=== PATIENT | female | born 1985 | race Two or more races ===

== ENCOUNTER 2024-07-23 18:49 | Emergency (ER) | payer MEDICAID, SELFPAY ==
[2024-07-23 19:16] VITALS: BP 106/68; PULSE 75; RESP 18; TEMP 37.1; O2SAT 97; BMI 21.6
--- NOTE | 2024-07-23 19:40 | XR_ITS ---
Examination: Complete OB ultrasound, less than 14 weeks, transabdominal Date and time of exam: July 23, 2024 2035 hrs. Indications: Weakness beginning one month ago Technique: Obstetrical ultrasound images less than 14 weeks performed via transabdominal imaging Findings: A normal shaped single intrauterine gestation is present in the uterus. pole 3.80 cm corresponds to 10 weeks 5 days gestational age Cardiac motion 160 BPM Ultrasonographic survey of visible and placental structures unremarkable. Amniotic fluid volume appears appropriate for this estimated gestational age. Right ovary 4.3 x 3.1 x 3.2 cm arterial flow Left ovary 4.5 x 2.7 x 2.9 cm arterial flow Impression: Viable intrauterine gestation 10 weeks 5 days.
[2024-07-23 19:51] LABS: Collection Type, Urine Clean Catch
[2024-07-23 19:56] LABS: Basophils # (Auto) 0.1 Thou/mm3 (0.0-0.2); Basophils % (Auto) 0 % (0-2.5); Eosinophils # (Auto) 0.1 Thou/mm3 (0.0-0.5); Eosinophils % (Auto) 1 % (0-10); Hematocrit 34.2 % (36.0-46.0); Hemoglobin 11.6 g/dL (12.0-16.0); Immature Granulocytes % (Auto) 0 % (0-0); Immature Granulocytes Auto 0.04 Thou/mm3 (0.00-0.00); Lymphocytes # (Auto) 2.2 Thou/mm3 (1.0-4.8); Lymphocytes % (Auto) 18 % (10-50); Mean Corpuscular HGB Conc 33.9 g/dl (31.0-37.0); Mean Corpuscular Volume 88 fL (80-100); Monocytes # (Auto) 0.7 Thou/mm3 (0.0-0.8); Monocytes % (Auto) 5 % (0-12); Neutrophils # (Auto) 9.4 Thou/mm3 (1.8-7.7); Neutrophils % (Auto) 76 % (37-80); Nucleated Red Blood Cell % 0 /100 WBC (0); Platelet Count 273 Thou/mm3 (140-440); RDW Standard Deviation 45.1 fL (36.4-46.3); Red Blood Count 3.87 Miln/mm3 (4.00-5.20); White Blood Count 12.4 Thou/mm3 (3.6-11.0)
[2024-07-23 20:05] LABS: Amphetamine/Methamp Scrn,U Negative (Negative); Barbiturate Screen,Urine Negative (Negative); Benzodiazepines Screen,Urine Negative (Negative); Benzoylecgonine Screen, Ur Negative (Negative); Fentanyl Screen,Urine Negative (Negative); Opiate Screen,Urine Negative (Negative); THC Screen,Urine Negative (Negative)
[2024-07-23 20:08] LABS: Beta Hydroxybutyrate 0.2 mmol/L (<0.6)
[2024-07-23 20:10] LABS: Bacteria,Urine Rare; Bilirubin,Urine Negative (Negative); Blood,Urine Negative (Negative); Clarity,Urine Clear (Clear/Hazy); Color,Urine Colorless (Lt Yel-Yel); Culture Indicated,Urine Not Indicated; Glucose, Urine Negative (Negative); Ketones,Urine Negative (Negative); Leukocyte Esterase,Urine Negative (Negative); Nitrite,Urine Negative (Negative); PH,Urine 6.5 (5.0-7.0); Protein,Urine Negative (Neg - Trace); RBC,Urine 1 /hpf (0-3); Specific Gravity,Urine 1.003 (1.001-1.035); Squamous Epithelial Cell,Urine 4 /hpf (0-5); Urobilinogen,Urine Negative mg/dL (0.0-1.0); WBC,Urine 2 /hpf (0-5)
[2024-07-23 20:15] LABS: HCG,Qualitative Serum Positive
[2024-07-23 20:21] LABS: Alanine Aminotransferase 10 U/L (10-49); Albumin, Serum 4.2 gm/dL (3.5-5.0); Albumin/Globulin Ratio 1.6 (1.2-2.2); Alcohol, Blood Medical < 3.0 mg/dL (0-10.0); Alkaline Phosphatase 59 U/L (46-116); Anion Gap 8 (7-16); Aspartate Amino Transferase 12 U/L (0-34); BUN/Creatinine Ratio 12 Ratio (12-20); Bilirubin,Total 0.2 mg/dL (0.3-1.2); Blood Urea Nitrogen 7 mg/dL (9-23); Calcium 9.4 mg/dL (8.3-10.6); Calcium (Corrected) 9.4 mg/dL (8.5-10.1); Carbon Dioxide 24.4 mMol/L (20.0-31.0); Chloride 106 mMol/L (98-107); Creatinine (Component) 0.6 mg/dL (0.6-1.3); Estimated Creatinine Clearance 124.5 mL/min (>60); Globulin 2.6 gm/dL (2.3-3.5); Glucose 112 mg/dL (74-106); Magnesium 1.9 mg/dL (1.6-2.6); Osmolality,Calculated 274 (275-295); Potassium 3.3 mMol/L (3.4-5.1); Sodium 138 mMol/L (136-145); Total Protein 6.8 gm/dL (5.7-8.2); eGFR > 60 See Note
[2024-07-23 20:55] LABS: Beta HCG,Quantitative 59725 mIU/mL (<5.0)
[2024-07-23] MEDS: POTASSIUM CHLORIDE 10% 20 MEQ/15 ML UDC 40 MEQ PO (21:18)
--- NOTE | 2024-07-23 21:39 | EDNOTE_ITS ---
ED General RME/HPI General Chief complaint: General Adult/Misc Complain Stated complaint: WEAKNESS, SHAKY X3 DAYS, IUP X2 MONTHS Time Seen by Provider: 07/23/24 19:01 Arrival date/time: 07/23/24 18:49 RME / HPI RME / HPI narrative: This section includes all my notes and documentations, including HPI, PE, and ED course. Jacob Winslow MD HPI: 28-year-old female here with a couple week history of generalized weakness and malaise and fatigue. No fever. No headache or dizziness. No chest pain or shortness of breath. No abdominal pain. No vaginal bleeding. No other complaints. ROS: All negative except as documented in HPI. Physical Exam: General: Alert and oriented. No acute distress. Eyes: Conjunctivae and lids clear. EOMI. PERRL. ENT: No nasal congestion. Pharynx normal. Tympanic membrane normal bilaterally. Neck: Supple. No lymphadenopathy. No JVD. Heart: RRR. Lungs: No respiratory distress. Good air movement. No rhonchi, wheezing, rales. Abdomen: Soft and nontender. Normal bowel sounds. No distension. No rebound or guarding. Back: No CVA tenderness. Legs: No clubbing, cyanosis, edema. Skin: Warm and dry. Neuro: Alert and oriented X 3. Cranial Nerves II-XII grossly intact. No peripheral motor deficits. I reviewed all diagnostic test results. My review of the OB ultrasound report is IUP. Blood tests and urine tests unremarkable, except K3.2 and elevated hCG due to . COVID/influenza negative. At this point, diagnoses include . Treatment here included oral KCl. Recommended supportive care and more care with OB. Based on my best medical judgment, made decision no further evaluation or treatment indicated at this time. Patient understands and agrees to the discharge instructions customized and printed, see below. Discharge Instructions from Dr. Winslow printed for you: 1. After evaluation, you are , about 10 weeks. The baby looks healthy. 2. Other blood and urine tests were all normal. COVID and influenza are negative. 3. Is normal to be tired during , along with other many symptoms. 4. Eat regular nutritious meals. For good hydration, increase oral fluid and maintain clear urine. If dark or yellow, increase oral fluid. 5. Take multivitamin daily. And exercise daily. 6. See insurance service representative on 07/25/2024 to start care. 7. Seek immediate medical care with any concerns. Related Data Allergies Allergy/AdvReac Type Severity Reaction Status Date / Time No Known Allergies Allergy Verified 07/23/24 18:51 Course Quality Measures none Orders Category Date Time Status Bedside COVID-19 Antigen Test NOW Care 07/23/24 19:05 Active Bedside Influenza A&B Antigen Test NOW Care 07/23/24 19:05 Completed US OB <= 14 weeks fetus Stat Exams 07/23/24 19:40 Taken Alcohol, Blood Medical Stat Lab 07/23/24 19:44 Completed Beta HCG,Quantitative Stat Lab 07/23/24 19:44 Completed Beta Hydroxybutyrate Stat Lab 07/23/24 19:44 Completed CBC Stat Lab 07/23/24 19:44 Completed CMP [Comprehensive Metabolic Panel] Stat Lab 07/23/24 19:44 Completed Drug Screen,Urine Stat Lab 07/23/24 19:37 Completed HCG,Qualitative Serum Stat Lab 07/23/24 19:44 Completed Magnesium Stat Lab 07/23/24 19:44 Completed TSH [Thyroid Stimulating Hormone] Stat Lab 07/23/24 19:44 Completed UA, C/S IF [Urinalysis, C/S if Indicated] Stat Lab 07/23/24 19:37 Completed KCL 10% Liq UDC 15 ML Med 07/23/24 20:36 Discontinued 40 meq PO X1 ONE Vital Signs Vital signs: Vital Signs Temperature 98.8 F 07/23/24 19:16 Pulse Rate 75 07/23/24 19:16 Respiratory Rate 18 07/23/24 19:16 Blood Pressure 106/68 07/23/24 19:16 Pulse Oximetry (%) 97 07/23/24 19:16 Oxygen Delivery Method Room Air 07/23/24 19:16 [facility] Patient data External records reviewed:: None Clinical information provided by:: patient Social determinants that could affect healthcare access:: none Patient has the following chronic illnesses:: None How is presenting disease/condition affected by chronic disease/condition?: no chronic disease Evaluation data The following diagnostics were reviewed and interpreted by me:: lab results and radiology exam(s) Lab and/or radiology exams considered but not ordered:: None Interpretation Summary: First trimester Medications Medications considered but not ordered:: None Medication administrations:: Medication Administration History Discontinued Medications Potassium Chloride (Potassium Chloride 10% 20 Meq/15 Ml Udc) 40 meq PO X1 ONE Stop: 07/23/24 20:37 Last Admin: 07/23/24 21:18 Dose: 40 meq Documented By: YOUNG Oral KCl Consultations Consultation(s) initiated? (list below): No Diagnosis Differential Diagnosis ED Complaint MDM: COVID, influenza, , dehydration, electrolyte abnormalities Most likely diagnosis given after review of the tests above:: First trimester Admission Indicated Admission indicated?: not indicated Explain why admission is indicated or not indicated:: Admission criteria not met Admission Request Was there a request for admission?: No Disposition Plan Disposition Plan: Discharge Discharge Attestation Discharge Attestation: The patient and all family members were given an opportunity to ask questions and understood the discharge instructions. Discharge instructions specifically effects, indications for sooner follow up or return to the emergency department, and the expected course of current diagnosis. Patient condition: Stable Medical Decision Making Differential Diagnosis Differential Diagnosis: COVID, influenza, , dehydration, electrolyte abnormalities Lab Data 07/23/24 19:44 07/23/24 19:44 Labs: Lab Results 07/23/24 07/23/24 Range/Units 19:37 19:44 WBC 12.4 H (3.6-11.0) Thou/mm3 RBC 3.87 L (4.00-5.20) Miln/mm3 Hgb 11.6 L (12.0-16.0) g/dL Hct 34.2 L (36.0-46.0) % MCV 88 (80-100) fL MCH 30.0 (25.0-35.0) pg MCHC 33.9 (31.0-37.0) g/dl RDW Std Deviation 45.1 (36.4-46.3) fL Plt Count 273 (140-440) Thou/mm3 Neut % (Auto) 76 (37-80) % Lymph % (Auto) 18 (10-50) % [place] % (Auto) 5 (0-12) % Eos % (Auto) 1 (0-10) % Baso % (Auto) 0 (0-2.5) % Neut # (Auto) 9.4 H (1.8-7.7) Thou/mm3 Lymph # (Auto) 2.2 (1.0-4.8) Thou/mm3 [place] # (Auto) 0.7 (0.0-0.8) Thou/mm3 Eos # (Auto) 0.1 (0.0-0.5) Thou/mm3 Baso # (Auto) 0.1 (0.0-0.2) Thou/mm3 Immature Gran # (Auto) 0.04 H (0.00-0.00) Thou/mm3 Absolute Nucleated RBC 0.00 (0.00-0.00) Thou/mm3 Immature Gran % 0 (0-0) % Nucleated RBC % 0 (0) /100 WBC Sodium 138 (136-145) mMol/L Potassium 3.3 L (3.4-5.1) mMol/L Chloride 106 (98-107) mMol/L Carbon Dioxide 24.4 (20.0-31.0) mMol/L Anion Gap 8 (7-16) BUN 7 L (9-23) mg/dL Creatinine 0.6 (0.6-1.3) mg/dL Estim Creat Clear Calc 124.5 (>60) mL/min eGFR > 60 (60 - ) See Note BUN/Creatinine Ratio 12 (12-20) Ratio Glucose 112 H (74-106) mg/dL Calculated Osmolality 274 L (275-295) Calcium 9.4 (8.3-10.6) mg/dL Corrected Calcium 9.4 (8.5-10.1) mg/dL Magnesium 1.9 (1.6-2.6) mg/dL Total Bilirubin 0.2 L (0.3-1.2) mg/dL AST 12 (0-34) U/L ALT 10 (10-49) U/L Alkaline Phosphatase 59 (46-116) U/L Total Protein 6.8 (5.7-8.2) gm/dL Albumin 4.2 (3.5-5.0) gm/dL Globulin 2.6 (2.3-3.5) gm/dL Albumin/Globulin Ratio 1.6 (1.2-2.2) Beta-Hydroxybutyrate/Acetoacetate 0.2 (<0.6) mmol/L TSH 1.70 (0.55-4.78) uIU/mL HCG, Qual Positive Beta HCG, Quant 13288 (<5.0) mIU/mL Ur Collection Type Clean Catch Urine Color Colorless A (Lt Yel-Yel) Urine Clarity Clear (Clear/Hazy) Urine pH 6.5 (5.0-7.0) Ur Specific [place] 1.003 (1.001-1.035) Urine Protein Negative (Neg - Trace) Urine Glucose (UA) Negative (Negative) Urine Ketones Negative (Negative) Urine Blood Negative (Negative) Urine Nitrite Negative (Negative) Urine Bilirubin Negative (Negative) Urine Urobilinogen (Auto) Negative (0.0-1.0) mg/dL Ur Leukocyte Esterase Negative (Negative) Urine RBC 1 (0-3) /hpf Urine WBC 2 (0-5) /hpf Ur Squamous Epith Cells 4 (0-5) /hpf Urine Bacteria Rare (None) Ur Culture Indicated? Not Indicated Urine Opiates Screen Negative (Negative) Urine Fentanyl Screen Negative (Negative) Ur Barbiturates Screen Negative (Negative) U Amphetamin/Meth Scrn Negative (Negative) U Benzodiazepines Scrn Negative (Negative) U Cocaine Metab Screen Negative (Negative) U Marijuana (THC) Screen Negative (Negative) Ethyl Alcohol < 3.0 (0-10.0) mg/dL Discharge Plan Plan Patient Disposition: HOME (Self Care) Problem List Clinical Impression: Patient/Caregiver Discharge Instructions Discharge Activity: activity as tolerated Education Materials: ED , New Dx Additional Instructions: Discharge Instructions from Dr. Winslow printed for you: 1. After evaluation, you are , about 10 weeks. The baby looks healthy. 2. Other blood and urine tests were all normal. COVID and influenza are negative. 3. Is normal to be tired during , along with other many symptoms. 4. Eat regular nutritious meals. For good hydration, increase oral fluid and maintain clear urine. If dark or yellow, increase oral fluid. 5. Take multivitamin daily. And exercise daily. 6. See insurance service representative on 07/25/2024 to start care. 7. Seek immediate medical care with any concerns. Print Language: Persian Stand Alone Forms: Franny Award Info., Patient Portal Info Letter
--- NOTE | 2024-07-23 21:55 | PRELIM_ITS ---
Obstetric ultrasound (transabdominal). July 23, 20242034 hours Clinical history: Cramping Compar sudha: NoneFindings:There is an intrauterine gestation with a single live fetus of mean gestational ag e 10 weeks and 5 days (CRL= 3.8 cm). cardiac activity is present at heart rate of 160 beats per minute. The yolk sac is demonstrated, measuring 0.7 cm. Estimated due date by ultrasound is 02/14/20.The uterus measures 13.8 x 5.2 x 11.1 cm and is anteverted. The right ovary measures 4.3 x 3.1 x 3.2 cm and is unremarkable. The left ovary measures 4.5 x 2.7 x 2.9 cm and is unremarkable. Both ovar ies demonstrate color flow and spectral waveforms on Doppler evaluation. There is no free fluid in th e pelvis.Impression:Intrauterine gestation with a single live fetus of mean gestational age 10 weeks and 5 days.No subchorionic hemorrhage. Report Electronically Signed By: Anny Whitt 07/23/2024 9: 54:24 PM [EST]
== END 2024-07-23 22:31 | disposition home or self-care (01) ==
LOC: SERX 21:47
PROVIDERS: Emergency Provider Emergency Medicine
DX: O26.899 Other specified pregnancy related conditions, unspecified trimester (principal); Z3A.00 Weeks of gestation of pregnancy not specified; R53.1 Weakness
CPT/HCPCS: 36415; 76801; 80053; 80307; 80320; 81001; 82010; 83735; 84443; 84702; 84703; 85025; 87400; 87811; 99284; A9270; G0480

== ENCOUNTER 2024-11-15 13:13 | Outpatient (AMB) | payer MEDICAID, SELFPAY | END 2024-11-15 13:31 | disposition home or self-care (01) | LOC: HODSOBC 13:13 | PROVIDERS: PCP Obstetrics & Gynecology; Referring Provider Obstetrics & Gynecology; Supervising Provider Obstetrics & Gynecology; Visit Provider Obstetrics & Gynecology | DX: Z76.89 Persons encountering health services in other specified circumstances (principal) ==